=== PATIENT | female | born 1955 | race Caucasian/White ===

== ENCOUNTER 2017-12-01 21:05 | Inpatient (IN) | payer SELFPAY ==
[~2017-12-01] VITALS: Ht 154.9 cm; Wt 74.4 kg
[~2017-12-01 21:05] MED LIST: ALDACTONE50 MG PO; FLAGYL500 MG PO; FUROSEMIDE40 MG PO; HYDROCODON-ACE1 EA12 PO; KLONOPIN1 MG PO; LASIX80 MG PO; LEVAQUIN500 MG PO; LOPRESSOR25 MG PO; NEXIUM40 MG PO; PEPTO-BISM262 MG/15 PO; POTASSIUM CHLO20 ME1 PO; PREVACID30 MG PO; PRINIVIL10 MG PO; ZITHROMAX250 MG
[2017-12-01] MEDS ORDERED: SODIUM CHLORIDE 0.9% 1000ML 1,000 ML IV STA (23:09)
[2017-12-01] MEDS ORDERED: PANTOPRAZOLE 40 MG 10ML VIAL IV STA (23:09)
[2017-12-01] MEDS ORDERED: FUROSEMIDE INJ 10 MG/ML 2 ML VIAL IV PRN (23:15)
[2017-12-01] MEDS ORDERED: SODIUM CHLORIDE 0.9% 250ML 250 ML IV ONE (23:15)
[2017-12-02] VITALS (46 sets, daily range): BP systolic 108–148; BP diastolic 48–100
--- NOTE | 2017-12-02 00:06 | Diagnostic Imaging Report ---
EXAM: CHEST SINGLE (PORTABLE), AP 1 view DATE: 12/01/2017 11:09 PM Time stamp on exam: 2353 hours INDICATION: Rectal bleeding, chest pain COMPARISON: AP view of the chest August 26, 2016 FINDINGS: LINES/TUBES: None LUNGS: Right lower lobe atelectasis/scarring. PLEURA: Stable small right pleural effusion. Trace left pleural effusion. HEART AND MEDIASTINUM: Stable BONES AND SOFT TISSUES: No acute findings. IMPRESSION: No interval change. Signed by: Dr. Aleyda Temple M.D. on 12/02/2017 12:02 AM
[2017-12-02 00:10] LABS: INR 1.55; PROTHROMBIN TIME 19.4 seconds (11.9-14.5)
[2017-12-02 00:11] LABS: PARTIAL THROMBOPLASTIN TIME 42.6 seconds (23.8-35.5)
[2017-12-02 00:12] LABS: BASOPHILS % 0.1 % (0.0-1.0); HEMATOCRIT 26.2 % (34.2-44.1); HEMOGLOBIN 8.5 g/dL (12.0-16.0); LYMPHOCYTES # (AUTO) 0.7 (1.0-3.2); LYMPHOCYTES % 7.5 % (18.0-39.1); MEAN CORPUSCULAR HEMOGLOBIN 41.5 pg (28-32); MEAN CORPUSCULAR HGB CONC 32.4 g/dL (31-35); MEAN CORPUSCULAR VOLUME 127.8 fL (81-99); MONOCYTES # (AUTO) 0.7 (0.2-0.8); MONOCYTES % 7.7 % (4.4-11.3); NEUTROPHILS # (AUTO) 7.6 (2.1-6.9); NEUTROPHILS % 82.9 % (38.7-80.0); PLATELET COUNT 115 x10e3/uL (140-360); RED BLOOD COUNT 2.05 x10e6/uL (3.6-5.1)
[2017-12-02] MEDS ORDERED: ALBUTEROL SULF 0.083% NEB SOLN 3 ML NEB NEB STA (00:13)
[2017-12-02 00:19] LABS: ALANINE AMINOTRANSFERASE 10 IU/L (0-55); ALBUMIN 1.6 g/dL (3.5-5.0); ALBUMIN/GLOBULIN RATIO 0.5 (0.8-2.0); ALKALINE PHOSPHATASE 118 IU/L (40-150); ANION GAP 9.9 mmol/L (8-16); BLOOD UREA NITROGEN 23 mg/dL (7-26); BUN/CREATININE RATIO 40 (6-25); CALCIUM 7.4 mg/dL (8.4-10.2); CARBON DIOXIDE 27 mmol/L (22-29); CHLORIDE 106 mmol/L (98-107); CREATINE KINASE 31 IU/L (29-168); CREATININE, SERUM 0.57 mg/dL (0.57-1.11); EST GLOMERULAR FILTRATION RATE > 60 ML/MIN (60-); GLUCOSE 93 mg/dL (74-118); LIPASE 15 U/L (8-78); MAGNESIUM 1.4 MG/DL (1.3-2.1); POTASSIUM 4.9 mmol/L (3.5-5.1); SODIUM 138 mmol/L (136-145)
[2017-12-02] MEDS ORDERED: DIATRIZOATE MEGL/DIATRIZOA SOD 120 ML BTL PO ONE (00:20)
[2017-12-02] MEDS ORDERED: SODIUM CHLORIDE 0.9% 250ML 250 ML IV ONE (00:45)
[2017-12-02] MEDS ORDERED: FUROSEMIDE INJ 10 MG/ML 2 ML VIAL IV PRN (00:45)
[2017-12-02] MEDS: OCTREOTIDE ACETATE 500 MCG in SODIUM CHLORIDE 0.9% 250ML 249 ML IV SCH ×2 (01:00→14:30)
[2017-12-02] MEDS ORDERED: ONDANSETRON HCL INJ 2 MG/ML VIAL IV STA (01:21)
[2017-12-02] MEDS ORDERED: ONDANSETRON HCL INJ 2 MG/ML VIAL ONE ×2 (01:27→13:46)
[2017-12-02] MEDS ORDERED: SODIUM CHLORIDE 0.9% 50ML 50 ML ONE (01:33)
[2017-12-02] MEDS ORDERED: IOPAMIDOL 370 MG/ML 200 ML INFUS..BTL INJ ONE (01:33)
[2017-12-02] MEDS ORDERED: SODIUM CHLORIDE 0.9% 250ML 250 ML ONE ×5 (03:25→14:51)
[2017-12-02 03:43] LABS: BASOPHILS % 0.1 % (0.0-1.0); LYMPHOCYTES # (AUTO) 0.5 (1.0-3.2); LYMPHOCYTES % 4.9 % (18.0-39.1); MEAN CORPUSCULAR HGB CONC 32.7 g/dL (31-35); MEAN CORPUSCULAR VOLUME 128.4 fL (81-99); MONOCYTES # (AUTO) 0.7 (0.2-0.8); MONOCYTES % 6.6 % (4.4-11.3); NEUTROPHILS # (AUTO) 8.6 (2.1-6.9); NEUTROPHILS % 86.6 % (38.7-80.0); PLATELET COUNT 103 x10e3/uL (140-360); RED BLOOD COUNT 1.62 x10e6/uL (3.6-5.1); RED CELL DISTRIBUTION WIDTH 18.4 % (11.7-14.4)
[2017-12-02 03:47] LABS: HEMATOCRIT 20.8 % (34.2-44.1); HEMOGLOBIN 6.8 g/dL (12.0-16.0)
[2017-12-02] MEDS: CEFEPIME HCL 2 GM VIAL IV SCH ×2 (04:00→15:24)
[2017-12-02 04:03] LABS: ALANINE AMINOTRANSFERASE 10 IU/L (0-55); ALBUMIN 1.4 g/dL (3.5-5.0); ALBUMIN/GLOBULIN RATIO 0.5 (0.8-2.0); ALKALINE PHOSPHATASE 96 IU/L (40-150); ANION GAP 12.9 mmol/L (8-16); BLOOD UREA NITROGEN 25 mg/dL (7-26); BUN/CREATININE RATIO 44 (6-25); CARBON DIOXIDE 25 mmol/L (22-29); CHLORIDE 103 mmol/L (98-107); CREATININE, SERUM 0.57 mg/dL (0.57-1.11); EST GLOMERULAR FILTRATION RATE > 60 ML/MIN (60-); GLUCOSE 89 mg/dL (74-118); POTASSIUM 4.9 mmol/L (3.5-5.1); SODIUM 136 mmol/L (136-145)
[2017-12-02] MEDS: METRONIDAZOLE 500MG/NS 100ML 100 ML IV SCH ×4 (04:10→18:28)
--- NOTE | 2017-12-02 05:02 | Diagnostic Imaging Report ---
EXAM: CT ABDOMEN AND PELVIS with IV CONTRAST DATE: 12/02/2017 12:12 AM Time stamp on Exam: 0302 hours Study available for dictation at 0440 hours. INDICATION: GI BLEED, abdominal pain COMPARISON: CT of the abdomen and pelvis April 27, 2014 TECHNIQUE: The abdomen and pelvis were scanned using a multidetector helical scanner. Coronal and sagittal reformations were obtained. Routine protocol performed. IV Contrast: 100 cc Isovue 370 Oral Contrast: Gastrografin CTDIvol has been reviewed. It is below the limits set by the Radiation Protocol Committee (RPC). FINDINGS: LOWER THORAX: Small bilateral pleural effusions and bibasilar atelectasis. LIVER: Small liver with nodular contours. BILIARY: Cholecystectomy with dilation of the common bile duct likely secondary to reservoir effect. SPLEEN: No masses PANCREAS: Pancreatic atrophy. ADRENALS: No nodules KIDNEYS: Symmetric perfusion. No enhancing masses. No hydronephrosis. GI TRACT: No distention, wall thickening or evidence of obstruction. VESSELS: Stable splenic artery varices and aneurysms measuring approximately 4 cm, 1.3 cm, and 2.5 cm in diameter. Stable findings of chronic portal vein thrombosis with recanalization. Enlarged portal inferior mesenteric vein. PERITONEUM/RETROPERITONEUM: Small to moderate volume ascites. LYMPH NODES: No lymphadenopathy REPRODUCTIVE ORGANS: Not visualized BLADDER: Decompressed by Matthews catheter. SOFT TISSUES: Unremarkable BONES: Surgical changes of the right hip. Chronic compression fractures of L1, L2. IMPRESSION: Cirrhosis with sequela of chronic portal hypertension including small to moderate volume ascites. Signed by: Dr. Aleyda Temple M.D. on 12/02/2017 4:58 AM
--- NOTE | 2017-12-02 05:10 | Diagnostic Imaging Report ---
Exam: Head CT without contrast History: Lethargy, altered mental status Comparison studies: None Technique: Axial images were obtained from the skull base to the vertex. Coronal and sagittal images reconstructed from the axial data. Intravenous contrast: None Findings: Scalp: No abnormalities. Bones: No fractures, blastic or lytic lesions. Brain sulci: Appropriate for age. Ventricles: Normal in size and configuration. No hydrocephalus. Extra-axial spaces: No masses, no fluid collection. Parenchyma: No mass, acute hemorrhage or acute or chronic cortical vascular insults. A few scattered subtle hypodensities in the supratentorial white matter are nonspecific but most compatible with chronic small vessel ischemic changes. Sellar/suprasellar region: No abnormalities. Craniocervical junction: Patent foramen magnum. No Chiari one malformation. Incidental findings: Atherosclerotic calcifications in the carotid siphons. Bilateral lens replacements related to previous cataract surgery. IMPRESSION: 1. No acute intracranial abnormalities. 2. Mild supratentorial chronic microvascular ischemic changes. Signed by: Dr. Dominik Gonzalez M.D. on 12/02/2017 5:06 AM
[2017-12-02 05:30] LABS: BILIRUBIN,URINE NEGATIVE (NEGATIVE); KETONES,URINE NEGATIVE (NEGATIVE); LEUKOCYTE ESTERASE ,URINE TRACE (NEGATIVE); NITRITE,URINE NEGATIVE (NEGATIVE); PROTEIN,URINE DIPSTICK NEGATIVE (NEGATIVE); URINE UROBILINOGEN 1 mg/dL (0.2 - 1)
[2017-12-02 05:31] LABS: CLARITY,URINE CLEAR (CLEAR); COLOR,URINE YELLOW (YELLOW)
[2017-12-02 05:57] LABS: EPITHELIAL CELLS,URINE RARE /LPF; TRANSITIONAL EPI CELLS,URINE FEW
[2017-12-02 05:58] LABS: BACTERIA,URINE RARE /HPF; RBC,URINE 0-5 /HPF (0-5); WBC,URINE (MAN) 0-5 /HPF (0-5)
[2017-12-02] MEDS ORDERED: PANTOPRAZOLE 40 MG 10ML VIAL IV SCH (09:00)
--- NOTE | 2017-12-02 09:05 | Diagnostic Imaging Report ---
PROCEDURE: CHEST XRAY LINE PLACEMENT COMPARISON: 12/01/2017. INDICATIONS: PICC LINE PLACEMENT FINDINGS: Interval placement of a right upper extremity PICC. The tip terminates over the expected region of the low superior vena cava. Lungs remain well-inflated. Right lower lobe atelectasis or scar with adjacent small pleural effusion, unchanged. Left hemithorax is clear. Stable cardiomediastinal contour. No acute osseous abnormality. CONCLUSION: Interval placement of a right upper extremity PICC, positioned as above. Otherwise stable chest relative to 12/01/2017. Dictated by: Dominik Whipple M.D. on 12/02/2017 at 9:14 Electronically approved by: Dominik Whipple M.D. on 12/02/2017 at 9:14
[2017-12-02 10:45] LABS: INR 1.43; PROTHROMBIN TIME 18.2 seconds (11.9-14.5)
[2017-12-02] MEDS ORDERED: PHYTONADIONE 10MG/ML 20 MG in SODIUM CHLORIDE 0.9% 50ML 50 ML IV SCH (11:45)
[2017-12-02 12:55] LABS: HEMATOCRIT 27.7 % (34.2-44.1); HEMOGLOBIN 9.4 g/dL (12.0-16.0)
[2017-12-02 13:43] LABS: ALANINE AMINOTRANSFERASE 11 IU/L (0-55); ALBUMIN 1.9 g/dL (3.5-5.0); ALBUMIN/GLOBULIN RATIO 0.7 (0.8-2.0); ALKALINE PHOSPHATASE 98 IU/L (40-150); ANION GAP 11.8 mmol/L (8-16); BLOOD UREA NITROGEN 20 mg/dL (7-26); BUN/CREATININE RATIO 38 (6-25); CALCIUM 7.4 mg/dL (8.4-10.2); CARBON DIOXIDE 28 mmol/L (22-29); CHLORIDE 102 mmol/L (98-107); CREATININE, SERUM 0.52 mg/dL (0.57-1.11); EST GLOMERULAR FILTRATION RATE > 60 ML/MIN (60-); GLUCOSE 109 mg/dL (74-118); POTASSIUM 3.8 mmol/L (3.5-5.1); SODIUM 138 mmol/L (136-145)
[2017-12-02] MEDS ORDERED: FUROSEMIDE INJ 10 MG/ML 4 ML VIAL IV ONE (14:00)
[2017-12-02 14:17] LABS: FERRITIN 135.62 ng/mL (4.63-204.00)
[2017-12-02 14:30] LABS: FOLATE 9.5 ng/mL (7.0-15.4)
--- NOTE | 2017-12-02 14:36 | Diagnostic Imaging Report ---
PROCEDURE: CHEST SINGLE (PORTABLE) COMPARISON: Earlier 12/02/2017. INDICATIONS: CENTRAL LINE PLACMENT FINDINGS: Right upper tree PICC is unchanged in position. Interval placement of a left subclavian central venous catheter, with the tip projecting over the expected region of the upper SVC. No pneumothorax. Stable right lower lobe airspace disease with small right pleural effusion. No new consolidations. No acute osseous abnormality. Right upper quadrant surgical clips. CONCLUSION: Interval placement of a left subclavian central venous catheter, positioned as described above. No pneumothorax. Otherwise stable chest compared to 12/02/2017 at 0835. Dictated by: Dominik Whipple M.D. on 12/02/2017 at 14:44 Electronically approved by: Dominik Whipple M.D. on 12/02/2017 at 14:44
--- NOTE | 2017-12-02 15:04 | Operative Report ---
DATE OF PROCEDURE: December 02, 2017 REFERRING PHYSICIAN: Dr. Shahnaz Sterling PROCEDURE PERFORMED: Esophagogastroduodenoscopy. INDICATIONS FOR PROCEDURE: Anemia, history of melena. MEDICATION: Patient was done under MAC. Please see anesthesiologist's note. PROCEDURE: With the patient in the left lateral decubitus position, the flexible fiberoptic Olympus gastroscope was introduced into the esophagus under direct visualization without any difficulty. The esophagus appeared to be within normal limits. The scope was then advanced with ease into the stomach, traversing a small sliding hiatal hernia. Mucosa overlying the antrum and the body revealed some diffuse erythema. The pylorus was intubated with ease, and the scope was advanced into the duodenal bulb, which was in its totality ulcerated. There were some stigmata of recent hemorrhage. The scope was then advanced into the 2nd portion of the duodenum. The proximal 2nd portion grossly appeared to be within normal limits. The scope was then withdrawn back into the stomach and retroflexed. Mucosa overlying the fundus and the cardia appeared to be within normal limits. The scope was then straightened out. The stomach was decompressed. Scope was subsequently withdrawn. Patient tolerated the procedure well. IMPRESSION 1. Normal esophagus. 2. Small sliding hiatal hernia. 3. Gastritis. 4. Giant ulcer occupying almost the entirety of the duodenal bulb with stigmata of recent hemorrhage. PLAN: Follow H and H. Maximize anti-PUD therapy. Initiate clear liquid diet. Job#: [id number] cc:SHAHNAZ STERLING MD
[2017-12-02] MEDS: PANTOPRAZOL 40MG/SOD CHL 0.9% 50 ML IV SCH ×2 (15:24→20:33)
[2017-12-02] MEDS: MORPHINE SULFATE 2 MG/ML SYR IV PRN ×2 (15:24→21:24)
[2017-12-02 15:32] LABS: BASOPHILS % 0.1 % (0.0-1.0); EOSINOPHILS % 0.1 % (0.0-6.0); HEMATOCRIT 32.4 % (34.2-44.1); HEMOGLOBIN 10.9 g/dL (12.0-16.0); LYMPHOCYTES # (AUTO) 0.4 (1.0-3.2); LYMPHOCYTES % 5.5 % (18.0-39.1); MEAN CORPUSCULAR HEMOGLOBIN 34.2 pg (28-32); MEAN CORPUSCULAR HGB CONC 33.6 g/dL (31-35); MEAN CORPUSCULAR VOLUME 101.6 fL (81-99); MONOCYTES # (AUTO) 0.6 (0.2-0.8); MONOCYTES % 8.1 % (4.4-11.3); NEUTROPHILS # (AUTO) 6.5 (2.1-6.9); NEUTROPHILS % 84.3 % (38.7-80.0); PLATELET COUNT 66 x10e3/uL (140-360); RED BLOOD COUNT 3.19 x10e6/uL (3.6-5.1); RED CELL DISTRIBUTION WIDTH 28.5 % (11.7-14.4)
[2017-12-02] MEDS: SUCRALFATE 1 GM TAB PO SCH ×2 (15:47→20:46)
[2017-12-02 17:06] LABS: LYMPHOCYTES % (MANUAL) 8 % (19-48); MONOCYTES % (MANUAL) 11 % (3.4-9.0); NEUTROPHILS % (MANUAL) 81 % (40-74)
[2017-12-02 17:07] LABS: ANISOCYTOSIS MODERATE; HYPOCHROMASIA SLIGHT; PLATELET ESTIMATE MODERATELY DECREASED; RBC MORPHOLOGY COMMENT NORMAL
[2017-12-02] MEDS ORDERED: PROPOFOL IV EMULSION 10 MG/ML 20 ML VIAL ONE (17:51)
[2017-12-02] MEDS: FUROSEMIDE INJ 10 MG/ML 4 ML VIAL IV SCH (20:46)
[2017-12-02] MEDS ORDERED: OCTREOTIDE ACETATE 1 ML ONE (23:53)
[2017-12-03] MEDS ORDERED: SODIUM CHLORIDE 0.9% 250ML 250 ML ONE (00:01)
[2017-12-03 00:10] VITALS: BP 147/79
[2017-12-03] MEDS: PANTOPRAZOL 40MG/SOD CHL 0.9% 50 ML IV SCH ×5 (00:45→20:30)
[2017-12-03] MEDS: OCTREOTIDE ACETATE 500 MCG in SODIUM CHLORIDE 0.9% 250ML 249 ML IV SCH ×2 (00:51→05:30)
[2017-12-03] MEDS: METRONIDAZOLE 500MG/NS 100ML 100 ML IV SCH ×5 (01:00→23:29)
[2017-12-03] MEDS: CEFEPIME HCL 2 GM VIAL IV SCH ×2 (02:30→13:32)
[2017-12-03 04:00] VITALS: BP 133/74
[2017-12-03] MEDS: MORPHINE SULFATE 2 MG/ML SYR IV PRN (05:03)
[2017-12-03 07:30] LABS: BASOPHILS % 0.3 % (0.0-1.0); HEMATOCRIT 29.5 % (34.2-44.1); HEMOGLOBIN 10.1 g/dL (12.0-16.0); LYMPHOCYTES # (AUTO) 0.6 (1.0-3.2); LYMPHOCYTES % 14.2 % (18.0-39.1); MEAN CORPUSCULAR HEMOGLOBIN 34.4 pg (28-32); MEAN CORPUSCULAR HGB CONC 34.2 g/dL (31-35); MEAN CORPUSCULAR VOLUME 100.3 fL (81-99); MONOCYTES # (AUTO) 0.4 (0.2-0.8); MONOCYTES % 10.4 % (4.4-11.3); NEUTROPHILS # (AUTO) 2.9 (2.1-6.9); NEUTROPHILS % 73.6 % (38.7-80.0); RED BLOOD COUNT 2.94 x10e6/uL (3.6-5.1); RED CELL DISTRIBUTION WIDTH 28.3 % (11.7-14.4)
[2017-12-03 07:49] LABS: PLATELET COUNT 49 x10e3/uL (140-360)
[2017-12-03] MEDS: SUCRALFATE 1 GM TAB PO SCH ×4 (08:10→21:00)
[2017-12-03 08:36] LABS: ANISOCYTOSIS MODE; HOWELL-JOLLY BODIES FEW; PLATELET ESTIMATE MODERATELY DECREASED; PLATELET MORPHOLOGY COMMENT NORMAL; POIKILOCYTOSIS MODERATE; RBC MORPHOLOGY COMMENT ABNORMAL
[2017-12-03] MEDS: CLONAZEPAM 1 MG TAB PO SCH ×2 (09:40→18:09)
[2017-12-03] MEDS: FUROSEMIDE INJ 10 MG/ML 4 ML VIAL IV SCH ×2 (09:41→21:00)
[2017-12-03 09:54] VITALS: BP 121/70
[2017-12-03] MEDS ORDERED: OCTREOTIDE ACETATE 500 MCG in SODIUM CHLORIDE 0.9% 250ML 249 ML IV SCH (10:45)
[2017-12-03 13:13] VITALS: BP 107/66
[2017-12-03 16:29] LABS: EOSINOPHILS % 0.2 % (0.0-6.0); HEMATOCRIT 29.2 % (34.2-44.1); HEMOGLOBIN 9.7 g/dL (12.0-16.0); LYMPHOCYTES # (AUTO) 0.6 (1.0-3.2); LYMPHOCYTES % 11.2 % (18.0-39.1); MEAN CORPUSCULAR HEMOGLOBIN 33.4 pg (28-32); MEAN CORPUSCULAR HGB CONC 33.2 g/dL (31-35); MEAN CORPUSCULAR VOLUME 100.7 fL (81-99); MONOCYTES # (AUTO) 0.5 (0.2-0.8); MONOCYTES % 9.1 % (4.4-11.3); NEUTROPHILS # (AUTO) 3.8 (2.1-6.9); NEUTROPHILS % 77.1 % (38.7-80.0); PLATELET COUNT 51 x10e3/uL (140-360); RED CELL DISTRIBUTION WIDTH 28.1 % (11.7-14.4)
[2017-12-03 17:59] VITALS: BP 108/60
[2017-12-03 20:08] VITALS: BP 131/70
[2017-12-03 21:20] LABS: BASOPHILS % 0.3 % (0.0-1.0); EOSINOPHILS % 0.2 % (0.0-6.0); HEMATOCRIT 29.7 % (34.2-44.1); LYMPHOCYTES # (AUTO) 0.5 (1.0-3.2); LYMPHOCYTES % 8.9 % (18.0-39.1); MEAN CORPUSCULAR HEMOGLOBIN 33.8 pg (28-32); MEAN CORPUSCULAR HGB CONC 33.7 g/dL (31-35); MEAN CORPUSCULAR VOLUME 100.3 fL (81-99); MONOCYTES # (AUTO) 0.5 (0.2-0.8); MONOCYTES % 8.4 % (4.4-11.3); NEUTROPHILS # (AUTO) 4.7 (2.1-6.9); NEUTROPHILS % 80.3 % (38.7-80.0); RED BLOOD COUNT 2.96 x10e6/uL (3.6-5.1); RED CELL DISTRIBUTION WIDTH 27.4 % (11.7-14.4)
[2017-12-03 21:21] LABS: PLATELET COUNT 48 x10e3/uL (140-360)
[2017-12-04] VITALS (7 sets, daily range): BP systolic 112–129; BP diastolic 62–84
[2017-12-04] MEDS: CEFEPIME HCL 2 GM VIAL IV SCH ×3 (01:15→17:13)
[2017-12-04] MEDS: PANTOPRAZOL 40MG/SOD CHL 0.9% 50 ML IV SCH ×5 (01:30→22:21)
[2017-12-04] MEDS: METRONIDAZOLE 500MG/NS 100ML 100 ML IV SCH ×4 (05:34→23:44)
[2017-12-04 07:09] LABS: BASOPHILS % 0.3 % (0.0-1.0); EOSINOPHILS % 0.3 % (0.0-6.0); HEMOGLOBIN 9.8 g/dL (12.0-16.0); LYMPHOCYTES # (AUTO) 0.7 (1.0-3.2); LYMPHOCYTES % 11.3 % (18.0-39.1); MEAN CORPUSCULAR HEMOGLOBIN 33.7 pg (28-32); MEAN CORPUSCULAR HGB CONC 33.8 g/dL (31-35); MEAN CORPUSCULAR VOLUME 99.7 fL (81-99); MONOCYTES # (AUTO) 0.5 (0.2-0.8); MONOCYTES % 8.4 % (4.4-11.3); NEUTROPHILS % 77.7 % (38.7-80.0); RED BLOOD COUNT 2.91 x10e6/uL (3.6-5.1); RED CELL DISTRIBUTION WIDTH 26.5 % (11.7-14.4)
[2017-12-04 07:17] LABS: PLATELET COUNT 39 x10e3/uL (140-360)
[2017-12-04] MEDS: SUCRALFATE 1 GM TAB PO SCH ×4 (08:18→20:02)
[2017-12-04] MEDS: FUROSEMIDE INJ 10 MG/ML 4 ML VIAL IV SCH ×2 (09:31→20:02)
[2017-12-04] MEDS: CLONAZEPAM 1 MG TAB PO SCH ×2 (09:31→16:51)
[2017-12-04 20:06] LABS: BASOPHILS % 0.2 % (0.0-1.0); HEMATOCRIT 31.6 % (34.2-44.1); HEMOGLOBIN 10.8 g/dL (12.0-16.0); LYMPHOCYTES # (AUTO) 0.8 (1.0-3.2); LYMPHOCYTES % 7.2 % (18.0-39.1); MEAN CORPUSCULAR HEMOGLOBIN 34.4 pg (28-32); MEAN CORPUSCULAR HGB CONC 34.2 g/dL (31-35); MEAN CORPUSCULAR VOLUME 100.6 fL (81-99); MONOCYTES # (AUTO) 0.8 (0.2-0.8); MONOCYTES % 7.8 % (4.4-11.3); NEUTROPHILS # (AUTO) 8.6 (2.1-6.9); NEUTROPHILS % 83.2 % (38.7-80.0); PLATELET COUNT 50 x10e3/uL (140-360); RED BLOOD COUNT 3.14 x10e6/uL (3.6-5.1); RED CELL DISTRIBUTION WIDTH 26.6 % (11.7-14.4)
[2017-12-04 20:51] LABS: ANISOCYTOSIS MODERATE; TARGET CELLS FEW
[2017-12-04 20:52] LABS: RBC MORPHOLOGY COMMENT ABNORMAL
[2017-12-04 20:53] LABS: PLATELET ESTIMATE MODERATELY DECREASED; PLATELET MORPHOLOGY COMMENT NORMAL
[2017-12-04] MEDS: MORPHINE SULFATE 2 MG/ML SYR IV PRN ×2 (22:16)
[2017-12-05] MEDS: PANTOPRAZOL 40MG/SOD CHL 0.9% 50 ML IV SCH ×5 (04:10→21:49)
[2017-12-05 04:40] VITALS: BP 101/67
[2017-12-05] MEDS: CEFEPIME HCL 2 GM VIAL IV SCH ×2 (05:11→17:25)
[2017-12-05] MEDS: METRONIDAZOLE 500MG/NS 100ML 100 ML IV SCH ×3 (06:40→17:26)
[2017-12-05 06:48] LABS: BASOPHILS % 0.4 % (0.0-1.0); HEMATOCRIT 29.4 % (34.2-44.1); HEMOGLOBIN 10.1 g/dL (12.0-16.0); LYMPHOCYTES # (AUTO) 0.8 (1.0-3.2); LYMPHOCYTES % 8.8 % (18.0-39.1); MEAN CORPUSCULAR HEMOGLOBIN 34.4 pg (28-32); MEAN CORPUSCULAR HGB CONC 34.4 g/dL (31-35); MONOCYTES # (AUTO) 0.8 (0.2-0.8); MONOCYTES % 8.5 % (4.4-11.3); NEUTROPHILS # (AUTO) 7.5 (2.1-6.9); NEUTROPHILS % 80.1 % (38.7-80.0); RED BLOOD COUNT 2.94 x10e6/uL (3.6-5.1); RED CELL DISTRIBUTION WIDTH 25.9 % (11.7-14.4)
[2017-12-05 06:50] LABS: PLATELET COUNT 39 x10e3/uL (140-360)
[2017-12-05 07:10] VITALS: BP 111/72
[2017-12-05] MEDS: SUCRALFATE 1 GM TAB PO SCH ×4 (07:30→21:49)
[2017-12-05] MEDS: CLONAZEPAM 1 MG TAB PO SCH ×2 (08:18→17:25)
[2017-12-05 08:32] LABS: LYMPHOCYTES % (MANUAL) 8 % (19-48); METAMYELOCYTES % (MANUAL) 1 % (0-0); MONOCYTES % (MANUAL) 8 % (3.4-9.0); MYELOCYTES % (MANUAL) 1 % (0-0); NEUTROPHILS % (MANUAL) 81 % (40-74); NUCLEATED RED BLOOD CELLS 1
[2017-12-05 08:33] LABS: ANISOCYTOSIS SLIGHT; HYPOCHROMASIA SLIG; MICROCYTOSIS SLIGHT; POLYCHROMASIA FEW; RBC MORPHOLOGY COMMENT NORMAL
[2017-12-05 08:34] LABS: PLATELET ESTIMATE MARKEDLY DECREASED; PLATELET MORPHOLOGY COMMENT NORMAL
[2017-12-05] MEDS ORDERED: FUROSEMIDE INJ 10 MG/ML 4 ML VIAL IV SCH (09:00)
[2017-12-05 11:30] VITALS: BP 114/76
[2017-12-05] MEDS: MORPHINE SULFATE 2 MG/ML SYR IV PRN ×2 (11:38→21:57)
--- NOTE | 2017-12-05 16:12 | Consultation ---
DATE OF CONSULTATION: HEMATOLOGY CONSULT A 62-year-old woman admitted to [facility] because of anemia due to GI bleeding. She was scoped by Dr. Hi Hampton and a duodenal ulcer was found, explaining her massive GI bleeding. At this time, the patient is stable and her hemoglobin appears to be normal without any further bleeding. Hematology consult was requested. Patient had a platelet count of 39,000. Patient does have a history of cirrhosis due to hep C that was explaining her thrombocytopenia. Patient does not need transfusion; it is not indicated unless she is actively bleeding. PAST MEDICAL AND SURGICAL HISTORY: As per history and physical by Dr. Ordoñez. PHYSICAL EXAMINATION GENERAL: Reveals an elderly white woman who is deaf, presently without complaint and feeling well. HEENT: Show chronic alopecia. NECK: Supple without JVD. CHEST: Clear. HEART: Sounds are benign. ABDOMEN: Soft. Liver is not enlarged. EXTREMITIES: Show no cyanosis, clubbing, or edema. ASSESSMENT AND PLAN: Thrombocytopenia due to cirrhosis. I do not suggest any platelet transfusions for now as it will be consumed rapidly. We will only transfuse platelets when the patient is actively bleeding. Job#: [id number] SAK
[2017-12-05 17:26] VITALS: BP 106/75
[2017-12-05 18:36] LABS: BASOPHILS # (AUTO) 0.1 (0.0-0.1); BASOPHILS % 0.5 % (0.0-1.0); EOSINOPHILS % 0.3 % (0.0-6.0); HEMATOCRIT 33.6 % (34.2-44.1); HEMOGLOBIN 11.4 g/dL (12.0-16.0); LYMPHOCYTES # (AUTO) 1.2 (1.0-3.2); LYMPHOCYTES % 9.9 % (18.0-39.1); MEAN CORPUSCULAR HEMOGLOBIN 34.1 pg (28-32); MEAN CORPUSCULAR HGB CONC 33.9 g/dL (31-35); MEAN CORPUSCULAR VOLUME 100.6 fL (81-99); MONOCYTES # (AUTO) 1.3 (0.2-0.8); MONOCYTES % 11.3 % (4.4-11.3); NEUTROPHILS # (AUTO) 8.8 (2.1-6.9); NEUTROPHILS % 75.5 % (38.7-80.0); RED BLOOD COUNT 3.34 x10e6/uL (3.6-5.1); RED CELL DISTRIBUTION WIDTH 26.5 % (11.7-14.4)
[2017-12-05 18:39] LABS: PLATELET COUNT 47 x10e3/uL (140-360)
[2017-12-05 20:00] VITALS: BP 114/66
[2017-12-05 22:04] VITALS: BP 114/66
[2017-12-06] VITALS (8 sets, daily range): BP systolic 110–126; BP diastolic 72–89
[2017-12-06] MEDS: METRONIDAZOLE 500MG/NS 100ML 100 ML IV SCH ×4 (01:19→16:10)
[2017-12-06] MEDS: PANTOPRAZOL 40MG/SOD CHL 0.9% 50 ML IV SCH ×4 (02:28→23:15)
[2017-12-06] MEDS ORDERED: FUROSEMIDE INJ 10 MG/ML 4 ML VIAL IV ONE (03:15)
[2017-12-06] MEDS: CEFEPIME HCL 2 GM VIAL IV SCH ×2 (05:15→17:26)
[2017-12-06 05:55] LABS: BASOPHILS # (AUTO) 0.1 (0.0-0.1); BASOPHILS % 0.7 % (0.0-1.0); HEMATOCRIT 33.4 % (34.2-44.1); HEMOGLOBIN 11.2 g/dL (12.0-16.0); LYMPHOCYTES # (AUTO) 1.2 (1.0-3.2); LYMPHOCYTES % 9.9 % (18.0-39.1); MEAN CORPUSCULAR HEMOGLOBIN 34.3 pg (28-32); MEAN CORPUSCULAR HGB CONC 33.5 g/dL (31-35); MEAN CORPUSCULAR VOLUME 102.1 fL (81-99); MONOCYTES # (AUTO) 1.8 (0.2-0.8); MONOCYTES % 15.3 % (4.4-11.3); NEUTROPHILS # (AUTO) 8.5 (2.1-6.9); NEUTROPHILS % 71.8 % (38.7-80.0); PLATELET COUNT 54 x10e3/uL (140-360); RED BLOOD COUNT 3.27 x10e6/uL (3.6-5.1)
[2017-12-06 06:23] LABS: ALANINE AMINOTRANSFERASE 7 IU/L (0-55); ALBUMIN 1.7 g/dL (3.5-5.0); ALBUMIN/GLOBULIN RATIO 0.5 (0.8-2.0); ALKALINE PHOSPHATASE 118 IU/L (40-150); BLOOD UREA NITROGEN 10 mg/dL (7-26); BUN/CREATININE RATIO 18 (6-25); CALCIUM 7.2 mg/dL (8.4-10.2); CHLORIDE 87 mmol/L (98-107); CREATININE, SERUM 0.55 mg/dL (0.57-1.11); EST GLOMERULAR FILTRATION RATE > 60 ML/MIN (60-); GLUCOSE 101 mg/dL (74-118); SODIUM 138 mmol/L (136-145)
[2017-12-06 06:49] LABS: ANION GAP 12.8 mmol/L (8-16)
[2017-12-06 07:08] LABS: CARBON DIOXIDE 41 mmol/L (22-29); POTASSIUM 2.8 mmol/L (3.5-5.1)
[2017-12-06] MEDS: FUROSEMIDE INJ 10 MG/ML 4 ML VIAL IV SCH ×2 (08:36→20:33)
[2017-12-06] MEDS: CLONAZEPAM 1 MG TAB PO SCH ×2 (08:36→16:12)
[2017-12-06] MEDS: SUCRALFATE 1 GM TAB PO SCH ×4 (08:36→20:33)
[2017-12-06] MEDS ORDERED: POTASSIUM CHLORIDE 20MEQ/15ML UDC PO ONE (09:00)
[2017-12-06 10:47] LABS: LYMPHOCYTES % (MANUAL) 9 % (19-48); MONOCYTES % (MANUAL) 18 % (3.4-9.0); NEUTROPHILS % (MANUAL) 69 % (40-74)
[2017-12-06 10:48] LABS: ANISOCYTOSIS MODE; BURR CELLS SLIGHT; POIKILOCYTOSIS MODERATE; RBC MORPHOLOGY COMMENT ABNORMAL; STOMATOCYTES SLIGHT; TEAR DROP CELLS FEW
[2017-12-06 10:49] LABS: PLATELET ESTIMATE MARKEDLY DECREASED; PLATELET MORPHOLOGY COMMENT NORMAL
[2017-12-06] MEDS: POTASSIUM CHLORIDE 20MEQ/15ML UDC PO SCH ×3 (12:05→16:12)
[2017-12-06 18:44] LABS: BASOPHILS # (AUTO) 0.1 (0.0-0.1); BASOPHILS % 0.8 % (0.0-1.0); EOSINOPHILS # (AUTO) 0.1 (0.0-0.4); EOSINOPHILS % 0.3 % (0.0-6.0); HEMATOCRIT 35.3 % (34.2-44.1); HEMOGLOBIN 11.6 g/dL (12.0-16.0); LYMPHOCYTES # (AUTO) 1.1 (1.0-3.2); LYMPHOCYTES % 7.3 % (18.0-39.1); MEAN CORPUSCULAR HEMOGLOBIN 34.2 pg (28-32); MEAN CORPUSCULAR HGB CONC 32.9 g/dL (31-35); MEAN CORPUSCULAR VOLUME 104.1 fL (81-99); MONOCYTES # (AUTO) 1.8 (0.2-0.8); MONOCYTES % 12.5 % (4.4-11.3); NEUTROPHILS # (AUTO) 11.1 (2.1-6.9); NEUTROPHILS % 76.4 % (38.7-80.0); PLATELET COUNT 55 x10e3/uL (140-360); RED BLOOD COUNT 3.39 x10e6/uL (3.6-5.1); RED CELL DISTRIBUTION WIDTH 27.3 % (11.7-14.4)
[2017-12-06] MEDS ORDERED: SPIRONOLACTONE 25 MG TAB PO ONE (22:15)
--- NOTE | 2017-12-06 23:16 | Diagnostic Imaging Report ---
EXAM: CHEST 2 VIEWS, PA and lateral DATE: 12/06/2017 10:15 PM Time stamp on exam: 2256 hours INDICATION: Cancer COMPARISON: AP view of the chest December 01, 2017 FINDINGS: LINES/TUBES: Right approach PICC terminates in expected location of the proximal atrium. Left subclavian central line terminates in expected location of the junction of the superior vena cava and brachiocephalic vein. LUNGS: Bibasilar atelectasis and vascular congestion. PLEURA: Small bilateral pleural effusions. HEART AND MEDIASTINUM: Stable mild cardiac enlargement. BONES AND SOFT TISSUES: No acute findings. Surgical clips right upper quadrant of the abdomen. IMPRESSION: Stable small bilateral pleural effusions. Signed by: Dr. Aleyda Temple M.D. on 12/06/2017 11:12 PM
[2017-12-07] MEDS: METRONIDAZOLE 500MG/NS 100ML 100 ML IV SCH ×5 (00:38→23:21)
[2017-12-07 00:39] VITALS: BP 112/79
[2017-12-07 02:53] LABS: BILIRUBIN,URINE 1+ (NEGATIVE); COLOR,URINE YELLOW (YELLOW); KETONES,URINE NEGATIVE (NEGATIVE); LEUKOCYTE ESTERASE ,URINE 2+ (NEGATIVE); NITRITE,URINE NEGATIVE (NEGATIVE); PROTEIN,URINE DIPSTICK NEGATIVE (NEGATIVE); URINE UROBILINOGEN 0.2 mg/dL (0.2 - 1)
[2017-12-07 02:55] LABS: CLARITY,URINE CLOUDY (CLEAR)
[2017-12-07] MEDS: MORPHINE SULFATE 2 MG/ML SYR IV PRN ×2 (02:56→23:20)
[2017-12-07 03:30] LABS: BACTERIA,URINE FEW /HPF; RBC,URINE 21-50 /HPF (0-5); WBC,URINE (MAN) >50 /HPF (0-5)
[2017-12-07 03:31] LABS: EPITHELIAL CELLS,URINE RARE /LPF; TRANSITIONAL EPI CELLS,URINE FEW; YEAST,URINE MANY
[2017-12-07] MEDS: PANTOPRAZOL 40MG/SOD CHL 0.9% 50 ML IV SCH ×3 (03:56→13:19)
[2017-12-07 04:28] VITALS: BP 121/80
[2017-12-07] MEDS: CEFEPIME HCL 2 GM VIAL IV SCH ×2 (04:57→17:19)
[2017-12-07 07:30] VITALS: BP 115/67
[2017-12-07] MEDS: SUCRALFATE 1 GM TAB PO SCH ×4 (08:10→21:00)
[2017-12-07] MEDS: FUROSEMIDE 40 MG TAB PO SCH (08:10)
[2017-12-07] MEDS: CLONAZEPAM 1 MG TAB PO SCH ×2 (08:10→17:19)
[2017-12-07] MEDS ORDERED: FLUCONAZOLE 200 MG/100 ML 100 ML IV ONE (11:00)
[2017-12-07 11:11] LABS: BASOPHILS # (AUTO) 0.1 (0.0-0.1); BASOPHILS % 0.3 % (0.0-1.0); EOSINOPHILS % 0.1 % (0.0-6.0); HEMATOCRIT 33.4 % (34.2-44.1); HEMOGLOBIN 11.3 g/dL (12.0-16.0); LYMPHOCYTES # (AUTO) 1.3 (1.0-3.2); LYMPHOCYTES % 8.7 % (18.0-39.1); MEAN CORPUSCULAR HEMOGLOBIN 34.6 pg (28-32); MEAN CORPUSCULAR HGB CONC 33.8 g/dL (31-35); MEAN CORPUSCULAR VOLUME 102.1 fL (81-99); MONOCYTES # (AUTO) 1.9 (0.2-0.8); MONOCYTES % 12.9 % (4.4-11.3); NEUTROPHILS # (AUTO) 11.3 (2.1-6.9); NEUTROPHILS % 76.2 % (38.7-80.0); PLATELET COUNT 65 x10e3/uL (140-360); RED BLOOD COUNT 3.27 x10e6/uL (3.6-5.1); RED CELL DISTRIBUTION WIDTH 27.3 % (11.7-14.4)
[2017-12-07 11:39] LABS: ALANINE AMINOTRANSFERASE 6 IU/L (0-55); ALBUMIN 1.8 g/dL (3.5-5.0); ALBUMIN/GLOBULIN RATIO 0.5 (0.8-2.0); ALKALINE PHOSPHATASE 127 IU/L (40-150); ANION GAP 12.3 mmol/L (8-16); BLOOD UREA NITROGEN 14 mg/dL (7-26); BUN/CREATININE RATIO 25 (6-25); CALCIUM 7.5 mg/dL (8.4-10.2); CHLORIDE 81 mmol/L (98-107); CREATININE, SERUM 0.57 mg/dL (0.57-1.11); EST GLOMERULAR FILTRATION RATE > 60 ML/MIN (60-); GLUCOSE 141 mg/dL (74-118); SODIUM 138 mmol/L (136-145)
[2017-12-07 11:41] LABS: CARBON DIOXIDE 47 mmol/L (22-29); POTASSIUM 2.3 mmol/L (3.5-5.1)
[2017-12-07 12:00] VITALS: BP 124/70
[2017-12-07] MEDS ORDERED: ALBUMIN 5% 250ML IV SCH (12:00)
[2017-12-07] MEDS ORDERED: BELLADONNA ALK/PHENOBARBITAL 5 ML UDC PO SCH (12:00)
[2017-12-07] MEDS: DONNATAL/LIDOCAINE/MAALOX 30 ML SUSP PO SCH ×3 (12:38→23:21)
[2017-12-07] MEDS ORDERED: POTASSIUM CHLORIDE 20MEQ/100ML 250 ML IV ONE (12:45)
[2017-12-07] MEDS ORDERED: ALBUMIN HUMAN 12.5GM / 50ML IV ONE (13:00)
[2017-12-07] MEDS ORDERED: POTASSIUM CHLORIDE 20MEQ/15ML UDC PO ONE ×3 (13:15→19:00)
[2017-12-07] MEDS ORDERED: POTASSIUM CHL 40 MEQ in SODIUM CHLORIDE 0.9% 250ML 250 ML IV ONE (13:30)
--- NOTE | 2017-12-07 14:02 | Diagnostic Imaging Report ---
EXAM: US ABDOMEN LIMITED DATE: 12/07/2017 12:33 PM INDICATION: Cirrhosis. Evaluate for paracentesis. COMPARISON: None FINDINGS: Limited sonographic evaluation to evaluate for free fluid. No significant fluid identified. IMPRESSION: As above. Signed by: Dr. Kiko Oliver MD on 12/07/2017 1:58 PM
[2017-12-07 14:14] LABS: POIKILOCYTOSIS SLIGHT
[2017-12-07 14:15] LABS: PLATELET ESTIMATE MARKEDLY DECREASED; POLYCHROMASIA FEW
[2017-12-07 14:16] LABS: PLATELET MORPHOLOGY COMMENT NORMAL
[2017-12-07 17:00] VITALS: BP 105/72
[2017-12-07] MEDS ORDERED: POTASSIUM CHLORIDE 20MEQ/15ML UDC NG ONE (17:00)
[2017-12-07 20:30] VITALS: BP 118/72
[2017-12-07] MEDS ORDERED: SODIUM CHLORIDE 0.9% 250ML 250 ML ONE (23:18)
[2017-12-08] VITALS: BP 120/70
[2017-12-08] MEDS: PANTOPRAZOL 40MG/SOD CHL 0.9% 50 ML IV SCH ×5 (00:30→21:06)
[2017-12-08 04:00] VITALS: BP 128/74
[2017-12-08] MEDS: CEFEPIME HCL 2 GM VIAL IV SCH ×2 (04:49→17:00)
[2017-12-08] MEDS: DONNATAL/LIDOCAINE/MAALOX 30 ML SUSP PO SCH ×3 (05:20→21:05)
[2017-12-08] MEDS: METRONIDAZOLE 500MG/NS 100ML 100 ML IV SCH ×4 (05:20→23:24)
[2017-12-08] MEDS: MORPHINE SULFATE 2 MG/ML SYR IV PRN (05:20)
[2017-12-08 06:00] LABS: ANION GAP 8.9 mmol/L (8-16); BLOOD UREA NITROGEN 13 mg/dL (7-26); BUN/CREATININE RATIO 24 (6-25); CALCIUM 8.2 mg/dL (8.4-10.2); CHLORIDE 86 mmol/L (98-107); CREATININE, SERUM 0.54 mg/dL (0.57-1.11); EST GLOMERULAR FILTRATION RATE > 60 ML/MIN (60-); GLUCOSE 84 mg/dL (74-118); SODIUM 137 mmol/L (136-145)
[2017-12-08 06:01] LABS: POTASSIUM 2.9 mmol/L (3.5-5.1)
[2017-12-08 06:02] LABS: CARBON DIOXIDE 45 mmol/L (22-29)
[2017-12-08] MEDS: SUCRALFATE 1 GM TAB PO SCH ×4 (07:30→21:06)
[2017-12-08 07:33] LABS: BASOPHILS % 0.2 % (0.0-1.0); HEMATOCRIT 25.6 % (34.2-44.1); LYMPHOCYTES # (AUTO) 0.8 (1.0-3.2); LYMPHOCYTES % 14.1 % (18.0-39.1); MEAN CORPUSCULAR HEMOGLOBIN 34.6 pg (28-32); MEAN CORPUSCULAR HGB CONC 32.8 g/dL (31-35); MEAN CORPUSCULAR VOLUME 105.3 fL (81-99); MONOCYTES # (AUTO) 0.9 (0.2-0.8); MONOCYTES % 17.4 % (4.4-11.3); NEUTROPHILS # (AUTO) 3.6 (2.1-6.9); NEUTROPHILS % 67.4 % (38.7-80.0); RED BLOOD COUNT 2.43 x10e6/uL (3.6-5.1); RED CELL DISTRIBUTION WIDTH 27.6 % (11.7-14.4)
[2017-12-08 07:37] LABS: HEMOGLOBIN 8.4 g/dL (12.0-16.0); PLATELET COUNT 39 x10e3/uL (140-360)
[2017-12-08 09:00] VITALS: BP 119/70
[2017-12-08] MEDS: CLONAZEPAM 1 MG TAB PO SCH (09:08)
[2017-12-08] MEDS: FUROSEMIDE 40 MG TAB PO SCH (09:08)
[2017-12-08] MEDS ORDERED: POTASSIUM CHLORIDE 20MEQ/100ML 300 ML IV ONE (10:00)
[2017-12-08 10:38] LABS: ABG HCO3 45 mmol/L (23-28); ABG PCO2 51 mmHg (41-51); ABG PH 7.55 (7.31-7.41); ABG PO2 62 mmHg (80-105)
[2017-12-08] MEDS ORDERED: CLONAZEPAM 1 MG TAB PO PRN (10:45)
[2017-12-08] MEDS: ALBUTEROL SULF 0.083% NEB SOLN 3 ML NEB NEB SCH ×4 (11:00→23:00)
[2017-12-08] MEDS ORDERED: ACETAZOLAMIDE 250 MG TAB PO ONE (11:30)
--- NOTE | 2017-12-08 12:50 | Consultation ---
DATE OF CONSULTATION: PULMONARY CONSULTATION PATIENT OF: Dr. Ordoñez and Dr. Hi Hampton. HPI: An unfortunate 62-year-old woman admitted with rectal bleeding, found to have a giant ulcer involving the duodenal bulb, history of hepatitis C, history of hypertension, cirrhosis, COPD, congestive heart failure, chronic respiratory failure. ALLERGIES: SAID TO BE ALLERGIC TO ASPIRIN AND IPRATROPIUM. History of falls, fractures and history of pain, is on pain medications. She has had gallbladder surgery, hysterectomy. She is currently listless and unable to relate her history. PHYSICAL EXAMINATION VITALS: Temperature 98.7, pulse 100, respirations 20, blood pressure 128/74. HEENT: Head normocephalic, atraumatic. Sallow complexion. LUNGS: Diminished breath sounds right base. HEART: Regular rhythm. ABDOMEN: Somewhat tender and distended particularly right upper quadrant. EXTREMITIES: Edematous. IMPRESSION 1. Giant ulcer. 2. Urinary infection. 3. Cirrhosis. 4. Thrombocytopenia. 5. Chronic respiratory failure. 6. Metabolic alkalosis. PLAN: Diamox. Decrease sedation. Followup chest x-ray. Therapy of congestive heart failure and GI bleeding. Thank you for this kind referral. Job#: [id number] ODIN
[2017-12-08] MEDS: FLUCONAZOLE 200 MG/100 ML 100 ML IV SCH (12:53)
[2017-12-08 13:00] VITALS: BP 120/73
[2017-12-08 13:54] LABS: ANION GAP 9.9 mmol/L (8-16); BLOOD UREA NITROGEN 13 mg/dL (7-26); BUN/CREATININE RATIO 22 (6-25); CALCIUM 8.1 mg/dL (8.4-10.2); CHLORIDE 85 mmol/L (98-107); CREATININE, SERUM 0.59 mg/dL (0.57-1.11); EST GLOMERULAR FILTRATION RATE > 60 ML/MIN (60-); GLUCOSE 139 mg/dL (74-118); SODIUM 133 mmol/L (136-145)
[2017-12-08 14:03] LABS: POTASSIUM 2.9 mmol/L (3.5-5.1)
[2017-12-08 14:04] LABS: CARBON DIOXIDE 41 mmol/L (22-29)
[2017-12-08] MEDS: CLONAZEPAM 0.5 MG TAB PO PRN (14:10)
[2017-12-08 14:13] LABS: EOSINOPHILS % (MANUAL) 1 % (0-7); LYMPHOCYTES % (MANUAL) 16 % (19-48); MONOCYTES % (MANUAL) 12 % (3.4-9.0); MYELOCYTES % (MANUAL) 1 % (0-0); NEUTROPHILS % (MANUAL) 69 % (40-74); PROMYELOCYTES % (MANUAL) 1 % (0-0)
[2017-12-08 14:14] LABS: ANISOCYTOSIS MODERATE; PLATELET ESTIMATE MARKEDLY DECREASED; PLATELET MORPHOLOGY COMMENT NORMAL; POIKILOCYTOSIS SLIGHT; RBC MORPHOLOGY COMMENT NORMAL
[2017-12-08 21:19] VITALS: BP 118/73
[2017-12-08 23:27] VITALS: BP 133/73
[2017-12-09] VITALS (7 sets, daily range): BP systolic 120–136; BP diastolic 70–84
[2017-12-09] MEDS: DONNATAL/LIDOCAINE/MAALOX 30 ML SUSP PO SCH ×4 (00:02→18:00)
[2017-12-09] MEDS: CLONAZEPAM 0.5 MG TAB PO PRN ×2 (00:08→10:21)
[2017-12-09] MEDS: PANTOPRAZOL 40MG/SOD CHL 0.9% 50 ML IV SCH ×5 (01:15→21:21)
[2017-12-09] MEDS: ALBUTEROL SULF 0.083% NEB SOLN 3 ML NEB NEB SCH ×5 (03:00→20:45)
[2017-12-09] MEDS: CEFEPIME HCL 2 GM VIAL IV SCH (05:15)
[2017-12-09] MEDS: METRONIDAZOLE 500MG/NS 100ML 100 ML IV SCH ×3 (05:21→17:39)
[2017-12-09 07:28] LABS: ANION GAP 8.3 mmol/L (8-16); BLOOD UREA NITROGEN 13 mg/dL (7-26); BUN/CREATININE RATIO 25 (6-25); CALCIUM 8.3 mg/dL (8.4-10.2); CARBON DIOXIDE 36 mmol/L (22-29); CHLORIDE 97 mmol/L (98-107); CREATININE, SERUM 0.51 mg/dL (0.57-1.11); EST GLOMERULAR FILTRATION RATE > 60 ML/MIN (60-); GLUCOSE 99 mg/dL (74-118); POTASSIUM 3.3 mmol/L (3.5-5.1); SODIUM 138 mmol/L (136-145)
[2017-12-09] MEDS: SUCRALFATE 1 GM TAB PO SCH ×4 (07:37→21:21)
[2017-12-09 07:46] LABS: BASOPHILS % 0.4 % (0.0-1.0); HEMATOCRIT 26.5 % (34.2-44.1); HEMOGLOBIN 8.6 g/dL (12.0-16.0); LYMPHOCYTES # (AUTO) 0.4 (1.0-3.2); LYMPHOCYTES % 8.3 % (18.0-39.1); MEAN CORPUSCULAR HEMOGLOBIN 34.8 pg (28-32); MEAN CORPUSCULAR HGB CONC 32.5 g/dL (31-35); MEAN CORPUSCULAR VOLUME 107.3 fL (81-99); MONOCYTES # (AUTO) 0.8 (0.2-0.8); MONOCYTES % 15.4 % (4.4-11.3); NEUTROPHILS # (AUTO) 3.9 (2.1-6.9); NEUTROPHILS % 74.6 % (38.7-80.0); RED BLOOD COUNT 2.47 x10e6/uL (3.6-5.1); RED CELL DISTRIBUTION WIDTH 27.9 % (11.7-14.4)
[2017-12-09 07:51] LABS: PLATELET COUNT 49 x10e3/uL (140-360)
[2017-12-09 09:56] LABS: ANISOCYTOSIS SLIG; HYPOCHROMASIA MODERATE; PLATELET ESTIMATE MARKEDLY DECREASED; PLATELET MORPHOLOGY COMMENT FEW LARGE; POIKILOCYTOSIS SLIGHT; RBC MORPHOLOGY COMMENT NORMAL
[2017-12-09] MEDS: FUROSEMIDE 40 MG TAB PO SCH (10:21)
--- NOTE | 2017-12-09 11:00 | Diagnostic Imaging Report ---
PROCEDURE:CHEST SINGLE (PORTABLE) TECHNIQUE:Portable AP chest INDICATION:Effusion COMPARISON:Patients [facility], DX, CHEST 2 VIEWS, 12/06/2017, 22:56. FINDINGS: Stable small effusions bilaterally (right), with progression pulmonary edema and central vascular enlargement. Stable cardiomegaly. CONCLUSION: 1. Unchanged right PICC terminating in the low SVC. 2. Unchanged left subclavian CVC with tip terminating at the brachiocephalic confluence/high SVC. 3. Stable small effusions bilaterally (right greater than left). 4. Progression of pulmonary edema and central vascular congestion. 5. Stable cardiomegaly. Dictated by: John Denis M.D. on 12/09/2017 at 11:09 Electronically approved by: John Denis M.D. on 12/09/2017 at 11:09
[2017-12-09] MEDS: FLUCONAZOLE 200 MG/100 ML 100 ML IV SCH (11:13)
[2017-12-09] MEDS ORDERED: CEFEPIME HCL 2 GM VIAL IV SCH (17:00)
[2017-12-09] MEDS: CEFEPIME HCL 1 GM VIAL IV SCH (18:00)
[2017-12-10] VITALS (8 sets, daily range): BP systolic 118–142; BP diastolic 70–84
[2017-12-10] MEDS: ALBUTEROL SULF 0.083% NEB SOLN 3 ML NEB NEB SCH ×7 (01:15→23:30)
[2017-12-10] MEDS ORDERED: POTASSIUM CHLORIDE 20 MEQ TAB CR PO STA (01:37)
[2017-12-10] MEDS: DONNATAL/LIDOCAINE/MAALOX 30 ML SUSP PO SCH ×5 (02:13→23:30)
[2017-12-10] MEDS: METRONIDAZOLE 500MG/NS 100ML 100 ML IV SCH ×5 (02:14→23:30)
[2017-12-10] MEDS: PANTOPRAZOL 40MG/SOD CHL 0.9% 50 ML IV SCH ×3 (02:30→14:02)
[2017-12-10] MEDS: CEFEPIME HCL 1 GM VIAL IV SCH ×2 (05:42→17:27)
[2017-12-10 08:45] LABS: BASOPHILS % 0.6 % (0.0-1.0); HEMATOCRIT 28.6 % (34.2-44.1); HEMOGLOBIN 9.3 g/dL (12.0-16.0); LYMPHOCYTES # (AUTO) 0.7 (1.0-3.2); LYMPHOCYTES % 10.6 % (18.0-39.1); MEAN CORPUSCULAR HEMOGLOBIN 34.4 pg (28-32); MEAN CORPUSCULAR HGB CONC 32.5 g/dL (31-35); MEAN CORPUSCULAR VOLUME 105.9 fL (81-99); NEUTROPHILS # (AUTO) 4.5 (2.1-6.9); NEUTROPHILS % 71.7 % (38.7-80.0); PLATELET COUNT 63 x10e3/uL (140-360); RED CELL DISTRIBUTION WIDTH 27.9 % (11.7-14.4)
[2017-12-10 09:04] LABS: ALBUMIN 2.5 g/dL (3.5-5.0); ALBUMIN/GLOBULIN RATIO 0.9 (0.8-2.0); ALKALINE PHOSPHATASE 101 IU/L (40-150); ANION GAP 8.5 mmol/L (8-16); BLOOD UREA NITROGEN 14 mg/dL (7-26); BUN/CREATININE RATIO 26 (6-25); CALCIUM 8.4 mg/dL (8.4-10.2); CARBON DIOXIDE 33 mmol/L (22-29); CHLORIDE 94 mmol/L (98-107); CREATININE, SERUM 0.53 mg/dL (0.57-1.11); EST GLOMERULAR FILTRATION RATE > 60 ML/MIN (60-); GLUCOSE 95 mg/dL (74-118); POTASSIUM 3.5 mmol/L (3.5-5.1); SODIUM 132 mmol/L (136-145)
[2017-12-10 09:06] LABS: ALANINE AMINOTRANSFERASE < 6 IU/L (0-55)
[2017-12-10] MEDS: FUROSEMIDE 40 MG TAB PO SCH (09:29)
[2017-12-10] MEDS: SUCRALFATE 1 GM TAB PO SCH ×4 (09:29→22:03)
[2017-12-10 10:46] LABS: INR 2.02
[2017-12-10 10:47] LABS: PROTHROMBIN TIME 23.9 seconds (11.9-14.5)
[2017-12-10] MEDS: FLUCONAZOLE 200 MG/100 ML 100 ML IV SCH (12:03)
[2017-12-10] MEDS ORDERED: PHYTONADIONE 10 MG/ML AMP SQ ONE (20:00)
[2017-12-11] VITALS (7 sets, daily range): BP systolic 109–140; BP diastolic 59–78
--- NOTE | 2017-12-11 01:35 | Diagnostic Imaging Report ---
EXAM: ABDOMEN-1VIEW (KUB) DATE: 12/11/2017 12:26 AM Time stamp on exam: 0105 AM INDICATION: Constipation COMPARISON: None FINDINGS: LINES/TUBES: None BOWEL PATTERN: No evidence for obstruction. Multiple surgical clips in the right upper quadrant compatible with prior cholecystectomy. Multiple semicircular metallic fragments in the pelvis compatible with prior bowel or hernia repair. SOFT TISSUES: No abnormal calcifications. No mass effect. LUNG BASES: Not included BONES: No acute findings. Partially visualized right femoral ORIF with intramedullary jenn and interlocking screw IMPRESSION: No evidence of obstructed bowel gas pattern. Signed by: Dr. Geovanny Nolan M.D. on 12/11/2017 1:31 AM
[2017-12-11] MEDS: ALBUTEROL SULF 0.083% NEB SOLN 3 ML NEB NEB SCH ×6 (03:44→23:22)
[2017-12-11] MEDS: CEFEPIME HCL 1 GM VIAL IV SCH ×2 (05:24→17:38)
[2017-12-11] MEDS: METRONIDAZOLE 500MG/NS 100ML 100 ML IV SCH ×3 (05:24→17:38)
[2017-12-11] MEDS: DONNATAL/LIDOCAINE/MAALOX 30 ML SUSP PO SCH ×3 (05:34→17:38)
[2017-12-11] MEDS: SUCRALFATE 1 GM TAB PO SCH ×4 (07:30→21:27)
[2017-12-11] MEDS: CLONAZEPAM 0.5 MG TAB PO PRN (08:30)
[2017-12-11] MEDS: TRAMADOL HCL 50 MG TAB PO PRN ×2 (08:30→20:27)
[2017-12-11] MEDS: FUROSEMIDE 40 MG TAB PO SCH (09:00)
[2017-12-11] MEDS: FLUCONAZOLE 200 MG/100 ML 100 ML IV SCH (11:00)
[2017-12-11] MEDS ORDERED: ASPIRIN 81 MG CHEW TAB PO ONE (20:30)
[2017-12-11] MEDS ORDERED: MORPHINE SULFATE 2 MG/ML SYR IV ONE (20:45)
[2017-12-11 21:24] LABS: CREATINE KINASE MB 0.7 ng/mL (0.00-5.00)
[2017-12-12] VITALS: BP 109/59
[2017-12-12] MEDS: METRONIDAZOLE 500MG/NS 100ML 100 ML IV SCH (02:05)
[2017-12-12] MEDS: ALBUTEROL SULF 0.083% NEB SOLN 3 ML NEB NEB SCH ×6 (03:15→23:30)
[2017-12-12 04:00] VITALS: BP 114/73
[2017-12-12] MEDS: DONNATAL/LIDOCAINE/MAALOX 30 ML SUSP PO SCH ×4 (05:43→18:00)
[2017-12-12] MEDS: CEFEPIME HCL 1 GM VIAL IV SCH ×2 (05:43→18:10)
[2017-12-12] MEDS: TRAMADOL HCL 50 MG TAB PO PRN ×3 (05:45→21:33)
[2017-12-12 07:14] LABS: INR 1.73; PROTHROMBIN TIME 21.2 seconds (11.9-14.5)
[2017-12-12 07:20] LABS: CREATINE KINASE MB 0.7 ng/mL (0.00-5.00)
[2017-12-12] MEDS: SUCRALFATE 1 GM TAB PO SCH ×4 (07:30→21:33)
[2017-12-12 08:32] VITALS: BP 143/68
[2017-12-12] MEDS: FUROSEMIDE 40 MG TAB PO SCH (09:00)
[2017-12-12] MEDS ORDERED: REGADENOSON 0.4 MG/5 ML SYR IV ONE (12:00)
[2017-12-12 12:27] VITALS: BP 103/62
--- NOTE | 2017-12-12 12:38 | Consultation ---
DATE OF CONSULTATION: December 12, 2017 CARDIOLOGY CONSULTATION REQUESTING PHYSICIAN: Dr. Shahnaz Ordoñez. REASON FOR CONSULTATION: Chest pain. HISTORY OF PRESENT ILLNESS: This is a 62-year-old woman with history of cirrhosis, hepatitis C, hypertension, COPD, and congestive heart failure who presented with complaints of GI bleeding. She was found to have a large ulcer involving the duodenal bulb and admitted for further care. Overnight, she complained of chest pain, for which cardiology is consulted. She refers the pain was a stabbing sensation, 8/10 in severity, radiating to the back. This was associated with shortness of breath, nausea and diaphoresis. History is limited, but patient also endorses right upper extremity weakness starting around this time. REVIEW OF SYSTEMS: Negative except as per HPI. PAST MEDICAL HISTORY 1. Hypertension. 2. Hepatitis C. 3. Liver cirrhosis. 4. COPD. 5. Congestive heart failure. PAST SURGICAL HISTORY 1. Cholecystectomy. 2. Hysterectomy. ALLERGIES: PLEASE SEE EMR. MEDICATIONS: Please see medication list. SOCIAL HISTORY: No tobacco or alcohol. FAMILY HISTORY: Noncontributory to current admission. PHYSICAL EXAMINATION VITAL SIGNS: Temperature 97.4 degrees, pulse 85, respiratory rate 18, blood pressure 143/68, oxygen saturation 98% on 4 liters nasal cannula. GENERAL: Obese woman, in no acute distress. HEENT: Normocephalic, atraumatic. Pupils equal, no scleral icterus. NECK: Supple. No thyromegaly or cervical lymphadenopathy. No carotid bruits. LUNGS: Clear to auscultation bilaterally. No wheezes or crackles. CARDIOVASCULAR: Normal rate, regular rhythm. No murmur. Normal S1, S2. ABDOMEN: Soft, nontender. EXTREMITIES: No edema. NEUROLOGIC: Difficult to assess as the patient responds quite slowly, but motor appears weaker on the left with pain on movement of the right upper extremity. LABS: Troponin 0.011. EKG; sinus tachycardia, anterolateral ST-T changes are nonspecific. IMPRESSION 1. Gastrointestinal bleeding secondary to large duodenal ulcer. 2. Chest pain. 3. Klebsiella pneumoniae and Jordana albicans urinary tract infection. 4. Liver cirrhosis. 5. Thrombocytopenia secondary to above. 6. Hypertension. 7. Reported history of congestive heart failure. 8. Chronic obstructive pulmonary disease. 9. Hepatitis C. RECOMMENDATIONS: No evidence of myocardial infarction on serial cardiac biomarkers thus far. Obtain echocardiogram. Given EKG abnormalities, we will proceed with a pharmacologic nuclear stress test. Obtain right upper extremity venous Doppler given the presence of PICC and right upper extremity discomfort. CT head given report of right upper extremity weakness. Echocardiogram has been done. We will review the images. Thank you for this consult. We will continue to follow. Job#: [id number] ODIN
--- NOTE | 2017-12-12 14:24 | Diagnostic Imaging Report ---
EXAMINATION: Head CT HISTORY: Right upper extremity weakness and pain COMPARISON: None. TECHNIQUE: Multidetector axial images were obtained without contrast from the foramen magnum to the vertex . The images were reconstructed using brain and bone algorithms. Thin section brain images were reformatted into coronal and sagittal planes. Intravenous contrast: None. Motion/streaking artifact limits the evaluation of the skull base and posterior cranial fossa. FINDINGS: Parenchyma: 1. Few scattered white matter hypodensities (mostly juxta cortical), most likely nonspecific chronic microvascular ischemic changes. 2. No mass or hemorrhage. No CT evidence of acute territorial vascular insult. Extra-axial spaces:No abnormal density. No extra-axial fluid collections Brain volume: Normal for age. Ventricles: No hydrocephalus or displacement. Arteries: No density suggestive of thrombus. Dural sinuses: No abnormal density. Extra-axial spaces: No abnormal density. Foramen magnum: No mass, Chiari malformation, or basilar invagination. Sella: No obvious mass. Paranasal/mastoid sinuses: Imaged portions unremarkable. Skull/Scalp: No lytic or blastic lesions. No fractures. IMPRESSION: 1. No acute intracranial hemorrhage or cortical infarcts. If there is clinical concern for acute stroke consider brain MRI for further evaluation. 2. Mild chronic microvascular ischemic changes. Signed by: Dr. Vickie Amaya M.D. on 12/12/2017 2:21 PM
[2017-12-12] MEDS: FLUCONAZOLE 200 MG/100 ML 100 ML IV SCH (15:00)
[2017-12-12] MEDS: CLONAZEPAM 0.5 MG TAB PO PRN (15:33)
[2017-12-12 16:21] VITALS: BP 104/56
--- NOTE | 2017-12-12 19:46 | Cardiology Report ---
DATE OF STUDY: December 12, 2017 PROCEDURE TITLE Rest stress single isotope SPECT imaging with pharmacologic stress and gated SPECT imaging. INDICATIONS: Chest pain. PROCEDURE: Pharmacologic stress testing was performed with regadenoson per protocol. The heart rate was 106 beats per minute at baseline and increased to 111 beats per minute during the regadenoson infusion. The rest blood pressure was 115/72 and increased to 124/72 mmHg, which is a normal response. Did not develop any significant symptoms. The resting electrocardiogram demonstrated normal sinus rhythm. There were no ST segment changes consistent with myocardial ischemia. Myocardial perfusion imaging was performed at rest following the injection of 11 mCi of tetrofosmin. At peak pharmacologic effect, the patient was injected with 31.3 mCi of tetrofosmin. Gated post stress tomographic imaging was performed. FINDINGS: The overall quality of the study is fair. Left ventricular cavity is noted to be normal size on the rest and stress studies. SPECT images demonstrate homogenous tracer distribution throughout the myocardium. Gated SPECT imaging reveals normal myocardial thickening and wall motion. The left ventricular ejection fraction was calculated at 62%. IMPRESSION: Myocardial perfusion imaging is normal. Overall left ventricular systolic function was normal without regional wall motion abnormalities. Job#: [id number]
[2017-12-12 20:00] VITALS: BP 111/61
[2017-12-13] VITALS: BP_SYST 105
[2017-12-13] MEDS: DONNATAL/LIDOCAINE/MAALOX 30 ML SUSP PO SCH ×4 (00:24→17:00)
[2017-12-13] MEDS: ALBUTEROL SULF 0.083% NEB SOLN 3 ML NEB NEB SCH ×6 (03:47→23:00)
[2017-12-13 04:00] VITALS: BP 110/59
[2017-12-13] MEDS: CEFEPIME HCL 1 GM VIAL IV SCH ×2 (05:47→17:00)
[2017-12-13] MEDS: SUCRALFATE 1 GM TAB PO SCH ×4 (07:45→21:31)
[2017-12-13 07:51] VITALS: BP 117/61
[2017-12-13 07:51] LABS: BASOPHILS # (AUTO) 0.1 (0.0-0.1); BASOPHILS % 1.3 % (0.0-1.0); HEMATOCRIT 26.7 % (34.2-44.1); HEMOGLOBIN 8.2 g/dL (12.0-16.0); LYMPHOCYTES # (AUTO) 0.6 (1.0-3.2); LYMPHOCYTES % 13.8 % (18.0-39.1); MEAN CORPUSCULAR HEMOGLOBIN 33.9 pg (28-32); MEAN CORPUSCULAR HGB CONC 30.7 g/dL (31-35); MEAN CORPUSCULAR VOLUME 110.3 fL (81-99); MONOCYTES # (AUTO) 0.7 (0.2-0.8); NEUTROPHILS # (AUTO) 3.1 (2.1-6.9); NEUTROPHILS % 67.6 % (38.7-80.0); PLATELET COUNT 84 x10e3/uL (140-360); RED BLOOD COUNT 2.42 x10e6/uL (3.6-5.1); RED CELL DISTRIBUTION WIDTH 27.7 % (11.7-14.4)
[2017-12-13] MEDS: SPIRONOLACTONE 25 MG TAB PO SCH ×2 (08:15→16:45)
[2017-12-13] MEDS: FUROSEMIDE 40 MG TAB PO SCH (08:15)
[2017-12-13 08:16] LABS: ALBUMIN 2.1 g/dL (3.5-5.0); ALBUMIN/GLOBULIN RATIO 0.7 (0.8-2.0); ALKALINE PHOSPHATASE 101 IU/L (40-150); ANION GAP 10.3 mmol/L (8-16); BLOOD UREA NITROGEN 16 mg/dL (7-26); BUN/CREATININE RATIO 30 (6-25); CALCIUM 8.1 mg/dL (8.4-10.2); CARBON DIOXIDE 31 mmol/L (22-29); CHLORIDE 99 mmol/L (98-107); CREATININE, SERUM 0.54 mg/dL (0.57-1.11); EST GLOMERULAR FILTRATION RATE > 60 ML/MIN (60-); GLUCOSE 107 mg/dL (74-118); POTASSIUM 3.3 mmol/L (3.5-5.1); SODIUM 137 mmol/L (136-145)
[2017-12-13 08:20] LABS: ALANINE AMINOTRANSFERASE < 6 IU/L (0-55)
[2017-12-13 08:41] LABS: ANISOCYTOSIS MARKED; PLATELET ESTIMATE MODERATELY DECREASED; PLATELET MORPHOLOGY COMMENT NORMAL; POIKILOCYTOSIS SLIGHT; RBC MORPHOLOGY COMMENT ABNORMAL
[2017-12-13] MEDS ORDERED: PHYTONADIONE 1 MG/0.5 ML AMP IM ONE (10:00)
[2017-12-13] MEDS: TRAMADOL HCL 50 MG TAB PO PRN ×2 (11:05→18:10)
[2017-12-13] MEDS: FLUCONAZOLE 200 MG/100 ML 100 ML IV SCH (11:40)
[2017-12-13 11:45] VITALS: BP 110/54
[2017-12-13] MEDS ORDERED: LACTULOSE SYRUP 20 GM/30 ML UDC PO PRN (13:15)
[2017-12-13] MEDS ORDERED: POTASSIUM CHLORIDE 10 MEQ TABCR PO ONE (14:00)
[2017-12-13 15:58] VITALS: BP 111/62
[2017-12-13] MEDS: PANTOPRAZOLE 40 MG 10ML VIAL IV SCH (16:45)
[2017-12-13] MEDS: CLONAZEPAM 0.5 MG TAB PO PRN (17:35)
[2017-12-13 19:49] VITALS: BP 109/60
[2017-12-14 00:30] VITALS: BP 133/63
[2017-12-14] MEDS: ALBUTEROL SULF 0.083% NEB SOLN 3 ML NEB NEB SCH ×6 (02:55→23:40)
[2017-12-14 04:45] VITALS: BP 127/63
[2017-12-14] MEDS: DONNATAL/LIDOCAINE/MAALOX 30 ML SUSP PO SCH ×4 (05:34→17:40)
[2017-12-14] MEDS: CEFEPIME HCL 1 GM VIAL IV SCH ×2 (05:34→17:40)
[2017-12-14 07:10] LABS: BASOPHILS % 0.9 % (0.0-1.0); EOSINOPHILS % 0.5 % (0.0-6.0); HEMATOCRIT 28.3 % (34.2-44.1); HEMOGLOBIN 8.9 g/dL (12.0-16.0); LYMPHOCYTES # (AUTO) 0.7 (1.0-3.2); LYMPHOCYTES % 15.8 % (18.0-39.1); MEAN CORPUSCULAR HEMOGLOBIN 34.1 pg (28-32); MEAN CORPUSCULAR HGB CONC 31.4 g/dL (31-35); MEAN CORPUSCULAR VOLUME 108.4 fL (81-99); MONOCYTES # (AUTO) 0.7 (0.2-0.8); MONOCYTES % 16.9 % (4.4-11.3); NEUTROPHILS # (AUTO) 2.7 (2.1-6.9); NEUTROPHILS % 64.5 % (38.7-80.0); PLATELET COUNT 105 x10e3/uL (140-360); RED BLOOD COUNT 2.61 x10e6/uL (3.6-5.1)
[2017-12-14 07:34] LABS: ALBUMIN 2.2 g/dL (3.5-5.0); ALBUMIN/GLOBULIN RATIO 0.6 (0.8-2.0); ALKALINE PHOSPHATASE 112 IU/L (40-150); ANION GAP 9.9 mmol/L (8-16); BLOOD UREA NITROGEN 12 mg/dL (7-26); BUN/CREATININE RATIO 24 (6-25); CALCIUM 8.2 mg/dL (8.4-10.2); CARBON DIOXIDE 32 mmol/L (22-29); CHLORIDE 99 mmol/L (98-107); CREATININE, SERUM 0.49 mg/dL (0.57-1.11); EST GLOMERULAR FILTRATION RATE > 60 ML/MIN (60-); GLUCOSE 70 mg/dL (74-118); POTASSIUM 3.9 mmol/L (3.5-5.1); SODIUM 137 mmol/L (136-145)
[2017-12-14 07:37] LABS: ALANINE AMINOTRANSFERASE < 6 IU/L (0-55)
[2017-12-14 08:00] VITALS: BP 102/51
[2017-12-14] MEDS: PANTOPRAZOLE 40 MG 10ML VIAL IV SCH ×2 (08:00→16:32)
[2017-12-14] MEDS: FUROSEMIDE 40 MG TAB PO SCH (08:00)
[2017-12-14] MEDS: SPIRONOLACTONE 25 MG TAB PO SCH ×2 (08:00→16:32)
[2017-12-14] MEDS: SUCRALFATE 1 GM TAB PO SCH ×4 (08:00→21:07)
--- NOTE | 2017-12-14 08:23 | Diagnostic Imaging Report ---
EXAMINATION: CHEST SINGLE (PORTABLE) INDICATION: \S\COPD \S\[id number] \S\0730 \S\Y COMPARISON: 12/09/2017 FINDINGS: AP view TUBES and LINES: Stable left subclavian central line. Interval removal of right PICC. LUNGS: Lungs are well inflated. Unchanged pulmonary gastric congestion, mild to moderate interstitial edema, and bilateral pleural effusions, right more on left. PLEURA: No visible pneumothorax. HEART AND MEDIASTINUM: Enlarged cardiomediastinal silhouette. BONES AND SOFT TISSUES: No acute osseous lesion. Soft tissues are unremarkable. UPPER ABDOMEN: No free air under the diaphragm. IMPRESSION: Enlarged cardiac mediastinal silhouette, mild to moderate interstitial edema, and moderate bilateral pleural effusions, not significantly changed from prior exam. Signed by: Dr. Agapito Redman MD on 12/14/2017 8:20 AM
[2017-12-14] MEDS: TRAMADOL HCL 50 MG TAB PO PRN (10:42)
[2017-12-14 11:41] LABS: BILIRUBIN,URINE 1+ (NEGATIVE); KETONES,URINE NEGATIVE (NEGATIVE); LEUKOCYTE ESTERASE ,URINE 1+ (NEGATIVE); URINE UROBILINOGEN 0.2 mg/dL (0.2 - 1)
[2017-12-14 11:42] LABS: NITRITE,URINE POSITIVE (NEGATIVE); PROTEIN,URINE DIPSTICK TRACE (NEGATIVE)
[2017-12-14] MEDS: FLUCONAZOLE 200 MG/100 ML 100 ML IV SCH (11:50)
[2017-12-14 11:56] LABS: EPITHELIAL CELLS,URINE FEW /LPF; RBC,URINE 0-5 /HPF (0-5); WBC,URINE (MAN) 0-5 /HPF (0-5)
[2017-12-14 11:57] VITALS: BP 124/68
[2017-12-14 11:57] LABS: AMORPHOUS SEDIMENT,URINE MANY (FEW); BACTERIA,URINE MODERATE /HPF; CLARITY,URINE CLOUDY (CLEAR); COLOR,URINE YELLOW (YELLOW)
[2017-12-14] MEDS ORDERED: FUROSEMIDE INJ 10 MG/ML 4 ML VIAL IV ONE (12:00)
[2017-12-14 16:16] VITALS: BP 120/64
[2017-12-14] MEDS: LACTULOSE SYRUP 20 GM/30 ML UDC PO SCH (16:32)
[2017-12-14 20:00] VITALS: BP 114/65
[2017-12-15] VITALS (8 sets, daily range): BP systolic 101–125; BP diastolic 62–75
[2017-12-15] MEDS: DONNATAL/LIDOCAINE/MAALOX 30 ML SUSP PO SCH ×4 (00:41→17:46)
[2017-12-15] MEDS: TRAMADOL HCL 50 MG TAB PO PRN ×3 (00:41→21:02)
[2017-12-15] MEDS: ALBUTEROL SULF 0.083% NEB SOLN 3 ML NEB NEB SCH ×6 (02:38→23:35)
[2017-12-15] MEDS: CEFEPIME HCL 1 GM VIAL IV SCH ×2 (05:33→17:46)
[2017-12-15 07:27] LABS: INR 1.57; PROTHROMBIN TIME 19.6 seconds (11.9-14.5)
[2017-12-15 07:49] LABS: ALANINE AMINOTRANSFERASE 7 IU/L (0-55); ALBUMIN 1.9 g/dL (3.5-5.0); ALBUMIN/GLOBULIN RATIO 0.6 (0.8-2.0); ALKALINE PHOSPHATASE 111 IU/L (40-150); ANION GAP 10.6 mmol/L (8-16); BLOOD UREA NITROGEN 9 mg/dL (7-26); BUN/CREATININE RATIO 18 (6-25); CALCIUM 7.9 mg/dL (8.4-10.2); CARBON DIOXIDE 35 mmol/L (22-29); CHLORIDE 97 mmol/L (98-107); CREATININE, SERUM 0.51 mg/dL (0.57-1.11); EST GLOMERULAR FILTRATION RATE > 60 ML/MIN (60-); GLUCOSE 82 mg/dL (74-118); POTASSIUM 3.6 mmol/L (3.5-5.1); SODIUM 139 mmol/L (136-145)
[2017-12-15 08:09] LABS: BASOPHILS % 0.9 % (0.0-1.0); EOSINOPHILS % 0.6 % (0.0-6.0); HEMATOCRIT 27.4 % (34.2-44.1); HEMOGLOBIN 8.6 g/dL (12.0-16.0); LYMPHOCYTES # (AUTO) 0.7 (1.0-3.2); LYMPHOCYTES % 20.2 % (18.0-39.1); MEAN CORPUSCULAR HEMOGLOBIN 34.5 pg (28-32); MEAN CORPUSCULAR HGB CONC 31.4 g/dL (31-35); MONOCYTES # (AUTO) 0.7 (0.2-0.8); MONOCYTES % 19.1 % (4.4-11.3); NEUTROPHILS % 57.8 % (38.7-80.0); PLATELET COUNT 91 x10e3/uL (140-360); RED BLOOD COUNT 2.49 x10e6/uL (3.6-5.1); RED CELL DISTRIBUTION WIDTH 27.8 % (11.7-14.4)
[2017-12-15] MEDS: LACTULOSE SYRUP 20 GM/30 ML UDC PO SCH ×2 (08:44→17:46)
[2017-12-15] MEDS: SPIRONOLACTONE 25 MG TAB PO SCH ×2 (08:44→17:46)
[2017-12-15] MEDS: SUCRALFATE 1 GM TAB PO SCH ×4 (08:44→21:02)
[2017-12-15] MEDS: PANTOPRAZOLE 40 MG 10ML VIAL IV SCH ×2 (08:44→17:46)
[2017-12-15] MEDS: FUROSEMIDE 40 MG TAB PO SCH (08:44)
[2017-12-15 09:15] LABS: EOSINOPHILS % (MANUAL) 1 % (0-7); LYMPHOCYTES % (MANUAL) 22 % (19-48); METAMYELOCYTES % (MANUAL) 1 % (0-0); MONOCYTES % (MANUAL) 14 % (3.4-9.0); NEUTROPHILS % (MANUAL) 52 % (40-74)
[2017-12-15 09:16] LABS: HYPOCHROMASIA SLIGHT; PLATELET ESTIMATE SLIGHTLY DECREASED; PLATELET MORPHOLOGY COMMENT FEW LARGE; RBC MORPHOLOGY COMMENT ABNORMAL
[2017-12-15 09:17] LABS: ANISOCYTOSIS MODERATE; POIKILOCYTOSIS SLIGHT
[2017-12-15] MEDS: FLUCONAZOLE 200 MG/100 ML 100 ML IV SCH (10:50)
[2017-12-16] MEDS: DONNATAL/LIDOCAINE/MAALOX 30 ML SUSP PO SCH ×5 (00:38→23:33)
[2017-12-16] MEDS: ALBUTEROL SULF 0.083% NEB SOLN 3 ML NEB NEB SCH ×6 (02:00→23:15)
[2017-12-16] MEDS: TRAMADOL HCL 50 MG TAB PO PRN (03:54)
[2017-12-16 04:00] VITALS: BP 113/68
[2017-12-16] MEDS: CEFEPIME HCL 1 GM VIAL IV SCH (06:36)
[2017-12-16 06:55] LABS: HEMATOCRIT 26.9 % (34.2-44.1); HEMOGLOBIN 8.4 g/dL (12.0-16.0); MEAN CORPUSCULAR HEMOGLOBIN 33.6 pg (28-32); MEAN CORPUSCULAR HGB CONC 31.2 g/dL (31-35); MEAN CORPUSCULAR VOLUME 107.6 fL (81-99); PLATELET COUNT 83 x10e3/uL (140-360); RED CELL DISTRIBUTION WIDTH 26.8 % (11.7-14.4)
[2017-12-16 07:22] LABS: ANION GAP 8.3 mmol/L (8-16); BLOOD UREA NITROGEN 8 mg/dL (7-26); BUN/CREATININE RATIO 17 (6-25); CALCIUM 7.7 mg/dL (8.4-10.2); CARBON DIOXIDE 34 mmol/L (22-29); CHLORIDE 100 mmol/L (98-107); CREATININE, SERUM 0.46 mg/dL (0.57-1.11); EST GLOMERULAR FILTRATION RATE > 60 ML/MIN (60-); GLUCOSE 80 mg/dL (74-118); POTASSIUM 3.3 mmol/L (3.5-5.1); SODIUM 139 mmol/L (136-145)
[2017-12-16 07:41] VITALS: BP 111/72
[2017-12-16] MEDS: LACTULOSE SYRUP 20 GM/30 ML UDC PO SCH ×2 (08:13→16:43)
[2017-12-16] MEDS: SUCRALFATE 1 GM TAB PO SCH ×4 (08:13→20:37)
[2017-12-16] MEDS: FUROSEMIDE 40 MG TAB PO SCH (08:13)
[2017-12-16] MEDS: PANTOPRAZOLE 40 MG 10ML VIAL IV SCH ×2 (08:13→16:43)
[2017-12-16] MEDS: SPIRONOLACTONE 25 MG TAB PO SCH ×2 (08:13→16:43)
[2017-12-16 08:18] LABS: POLYCHROMASIA FEW
[2017-12-16 08:19] LABS: ANISOCYTOSIS SLIG; HYPOCHROMASIA SLIGHT; PLATELET ESTIMATE SLIGHTLY DECREASED; PLATELET MORPHOLOGY COMMENT FEW GIANT; POIKILOCYTOSIS MODERATE
[2017-12-16 08:23] LABS: RBC MORPHOLOGY COMMENT ABNORMAL
[2017-12-16 10:31] VITALS: BP 111/72
[2017-12-16] MEDS ORDERED: CEFTRIAXONE SOD 1 GM VIAL IM SCH (11:00)
[2017-12-16] MEDS: FLUCONAZOLE 200 MG/100 ML 100 ML IV SCH (11:05)
[2017-12-16 11:40] VITALS: BP 117/76
[2017-12-16 15:46] VITALS: BP 115/76
--- NOTE | 2017-12-16 17:58 | Consultation ---
DATE OF CONSULTATION: INFECTIOUS DISEASE CONSULTATION HISTORY OF PRESENT ILLNESS: This is a 62-year-old female who has history of liver disease, comes into the hospital because she is not feeling well. She has history of hepatitis C, liver cirrhosis, hypertension, COPD, congestive heart failure. Comes in with GI bleed. Patient was admitted back on December 01. She has been seen by GI. She was seen by Hematology-Oncology and Cardiology. Infectious Disease was consulted because her urine is showing Strep viridans. Patient is just not feeling well in general but no specific complaints. I reviewed her chart. PHYSICAL EXAMINATION GENERAL: She is alert, __icteric. VITAL SIGNS: Stable. Currently afebrile. HEENT: She does __not appear icteric. NECK: Supple. CHEST: A few crackles at the bases. HEART: S1 and S2. ABDOMEN: Soft. IMPRESSION 1. Bacteruria. Patient can be treated with amoxicillin 500 mg p.o. t.i.d. for 5 days for cystitis. 2. Liver disease. 3. History of hepatitis C. 4. Urinary tract infection with Strep viridans. She is currently on Rocephin but can change to oral amoxicillin. 5. Anemia of chronic disease. Thank you for asking me to see this patient. Job#: [id number] EV
--- NOTE | 2017-12-16 19:12 | Progress Note ---
DATE: December 16, 2017 CARDIOLOGY PROGRESS NOTE SUBJECTIVE: Patient denies chest pain. OBJECTIVE VITALS: Temperature 97.4 degrees, pulse 96, respiratory rate 20, blood pressure 117/76, and oxygen saturation 96% on room air. GENERAL: Obese woman in no acute distress. LUNGS: Clear to auscultation bilaterally. No wheezes or crackles. CARDIOVASCULAR: Normal rate and regular rhythm. No murmur. Normal S1 and S2. ABDOMEN: Soft and nontender. EXTREMITIES: No edema. CARDIAC MEDICATIONS 1. Spironolactone 25 mg p.o. b.i.d. 2. Furosemide 40 mg p.o. daily. LABS: WBC 3.2, hemoglobin 8.4, hematocrit 26.9, and platelets 83,000. Sodium 139, potassium 3.3, chloride 100, CO2 34, BUN 8, creatinine 0.46. IMPRESSION 1. Gastrointestinal bleeding secondary to a large duodenal ulcer. 2. Klebsiella pneumoniae, Jordana albicans and Streptococcus viridans urinary tract infection. 3. Chest pain. 4. Liver cirrhosis. 5. Thrombocytopenia secondary to above. 6. Hypertension. 7. Reported history of congestive heart failure: Suspect diastolic given normal systolic function on echocardiogram. 8. Chronic obstructive pulmonary disease. 9. Hepatitis C. RECOMMENDATIONS: The patient ruled out for myocardial infarction with serial cardiac biomarkers. Nuclear stress test was without evidence of ischemia. The patient's thrombocytopenia limits ability to give aspirin. Continue current cardiac medications. Otherwise, antibiotics per infectious disease. Thank you for this consult. We will continue to follow. Job#: [id number] ROBYN PEDERSEN
[2017-12-16 20:00] VITALS: BP 114/77
[2017-12-17] VITALS: BP 115/79
[2017-12-17] MEDS: ALBUTEROL SULF 0.083% NEB SOLN 3 ML NEB NEB SCH ×3 (02:05→10:25)
[2017-12-17 05:12] VITALS: BP 123/81
[2017-12-17] MEDS: DONNATAL/LIDOCAINE/MAALOX 30 ML SUSP PO SCH (05:30)
[2017-12-17] MEDS: TRAMADOL HCL 50 MG TAB PO PRN (05:44)
[2017-12-17 07:45] VITALS: BP 139/76
[2017-12-17] MEDS: PANTOPRAZOLE 40 MG 10ML VIAL IV SCH (07:45)
[2017-12-17] MEDS: SUCRALFATE 1 GM TAB PO SCH (07:45)
[2017-12-17] MEDS: SPIRONOLACTONE 25 MG TAB PO SCH (09:00)
[2017-12-17] MEDS ORDERED: FLUCONAZOLE 100 MG TAB PO SCH (09:00)
[2017-12-17] MEDS ORDERED: LACTULOSE SYRUP 20 GM/30 ML UDC PO SCH (09:00)
[2017-12-17] MEDS: FUROSEMIDE 40 MG TAB PO SCH (09:00)
--- NOTE | 2017-12-17 10:50 | Discharge Summary ---
Ms. Juan is a 62-year-old female with a history of liver cirrhosis, hepatitis C, hypertension, COPD, and CHF. She came to the emergency room complaining of GI bleed. She had an EGD done that showed a big duodenal ulcer. She was anemic and required blood transfusion. She was found to have a urinary tract infection, first with klebsiella, then she developed yeast. Now she has Streptococcus viridans. She has been doing a little better. She is more awake and alert. The plan is to transfer her to SNF to continue her treatment and for some rehab. On physical examination today, she is awake. She is alert. Temperature is 95.6, blood pressure 139/76. The heart has regular rate at 100 per minute. The lungs are clear to auscultation. The abdomen is distended and soft. Lower extremities have bilateral edema. On the blood work, potassium is 3.3. Creatinine is 0.46. Glucose is 80. Sodium 139. White count 3.21, hemoglobin 8.4, hematocrit 26.9. As I said before, on her cultures, she was on Diflucan already for several days. She completed IV antibiotics. The last urine culture showed Strep viridans sensitive only to penicillin. The plan is to discharge her to SNF to continue on p.o. amoxicillin. DISCHARGE DIAGNOSES 1. Liver cirrhosis secondary to hepatitis C. 2. Hepatic encephalopathy, improving. 3. Anemia secondary to upper gastrointestinal bleed. 4. Upper gastrointestinal bleed secondary to huge duodenal ulcer. 5. Urinary tract infection with Streptococcus viridans. She is going to be on p.o. amoxicillin. The plan at the present time is to transfer the patient to SNF. She is going to be on: 1. Amoxicillin 500 mg p.o. q.8 h. for 5 days. 2. Continue albuterol nebulizations. 3. Furosemide 40 mg daily. 4. Protonix 40 mg twice a day. 5. Sucralfate 1 g q.a.c. and nightly. 6. Aldactone 25 mg twice a day. 7. Clonazepam 0.5 twice a day. 8. Lactulose 20 g daily. 9. Tramadol 50 mg twice a day p.r.n. for pain. All of this was discussed with the patient and the nurse. All questions were answered to her satisfaction. They are to call me or bring her back to the emergency room if any recurrent problem. MARTHA STERLING MD Job#: [id number] MH
[2017-12-17] MEDS ORDERED: CEFTRIAXONE SOD 1 GM VIAL IV SCH (11:00)
[2017-12-17] MEDS ORDERED: AMOXICILLIN 250 MG CAP PO SCH (14:00)
== END 2017-12-17 10:50 | DRG 378 ==
LOC: ER 21:05 → ERHOLD 12-02 02:25 → ICU 12-02 06:45 → IMCU 12-03 00:34 → MED/SURG3 12-10 00:31
PROVIDERS: ADMIT Internal Medicine; ATTEND Internal Medicine
PROC: 02HV33Z Insertion of Infusion Device into Superior Vena Cava, Percutaneous Approach (ICD-10-PCS; 2017-12-02)
PROC: 30243K1 Transfusion of Nonautologous Frozen Plasma into Central Vein, Percutaneous Approach (ICD-10-PCS; 2017-12-02)
PROC: 30243N1 Transfusion of Nonautologous Red Blood Cells into Central Vein, Percutaneous Approach (ICD-10-PCS; 2017-12-02)
PROC: 0DJ08ZZ Inspection of Upper Intestinal Tract, Via Natural or Artificial Opening Endoscopic (ICD-10-PCS; principal; 2017-12-02 13:30)
DX: K26.4 Chronic or unspecified duodenal ulcer with hemorrhage (principal); I50.32 Chronic diastolic (congestive) heart failure; E87.3 Alkalosis; J96.10 Chronic respiratory failure, unspecified whether with hypoxia or hypercapnia; D68.9 Coagulation defect, unspecified; K72.90 Hepatic failure, unspecified without coma; I11.0 Hypertensive heart disease with heart failure; D69.59 Other secondary thrombocytopenia; B37.49 Other urogenital candidiasis; D62 Acute posthemorrhagic anemia; I82.611 Acute embolism and thrombosis of superficial veins of right upper extremity; K74.60 Unspecified cirrhosis of liver; B18.2 Chronic viral hepatitis C; B95.4 Other streptococcus as the cause of diseases classified elsewhere; D63.8 Anemia in other chronic diseases classified elsewhere; J44.9 Chronic obstructive pulmonary disease, unspecified; B96.1 Klebsiella pneumoniae [K. pneumoniae] as the cause of diseases classified elsewhere; K44.9 Diaphragmatic hernia without obstruction or gangrene; K29.70 Gastritis, unspecified, without bleeding
CPT/HCPCS: 36415; 36430; 36569; 36600; 43235; 70450; 71045; 71046; 74018; 74177; 76705; 78452; 80048; 80053; 81001; 82140; 82270; 82550; 82553; 82607; 82728; 82746; 82805; 83540; 83605; 83690; 83735; 83880; 84100; 84132; 84466; 84484; 85007; 85014; 85018; 85025; 85027; 85045; 85610; 85730; 86850; 86870; 86880; 86900; 86905; 86920; 86922; 87040; 87086; 87186; 87493; 87521; 93005; 93017; 93306; 93971; 94640; 96360; 96361; 96365; 96366; 97139; 99001; 99284; A9502; J0692; J0696; J1450; J1940; J2270; J2353; J2405; J3430; J3480; J7030; J7050; P9016; P9017; Q9963; Q9967